=== PATIENT | female | born 1950 | race Caucasian/White ===

== ENCOUNTER 2020-09-07 12:42 | Emergency (ER) | payer MEDICARE, OTHER ==
[~2020-09-07] VITALS: Ht 170.2 cm; Wt 68.0 kg
[~2020-09-07 12:42] MED LIST: ACID REDUCER10 MG PO; ASPIR-LOW81 MG PO; LOSARTAN POTASS25 MG PO; METOPROLOL SUCC25 MG PO; WAL-ITIN10 MG PO
[2020-09-07] MEDS ORDERED: METOPROLOL TART50 MG PO (12:56)
[2020-09-07] MEDS ORDERED: MELOXICAM7.5 MG PO (12:57)
[2020-09-07] MEDS ORDERED: LOSARTAN POTAS100 MG PO (12:57)
[2020-09-07] MEDS ORDERED: CLONIDINE HCL0.1 MG PO (12:57)
[2020-09-07] MEDS ORDERED: HYDROCHLOROTH12.5 MG PO (12:57)
[2020-09-07] MEDS ORDERED: MONTELUKAST SOD10 MG PO (12:57)
[2020-09-07 13:13] LABS: BASOPHILS # (AUTO) 0.1 (0.0-0.1); BASOPHILS % 0.9 % (0.0-1.0); EOSINOPHILS % 0.5 % (0.0-6.0); HEMATOCRIT 38.2 % (34.2-44.1); HEMOGLOBIN 13.1 g/dL (12.0-16.0); LYMPHOCYTES # (AUTO) 1.4 (1.0-3.2); MEAN CORPUSCULAR HEMOGLOBIN 29.7 pg (28-32); MEAN CORPUSCULAR HGB CONC 34.3 g/dL (31-35); MEAN CORPUSCULAR VOLUME 86.6 fL (81-99); MONOCYTES # (AUTO) 0.4 (0.2-0.8); MONOCYTES % 7.3 % (4.4-11.3); NEUTROPHILS # (AUTO) 3.8 (2.1-6.9); NEUTROPHILS % 67.1 % (38.7-80.0); PLATELET COUNT 247 x10e3/uL (140-360); RED BLOOD COUNT 4.41 x10e6/uL (3.6-5.1); RED CELL DISTRIBUTION WIDTH 11.9 % (11.7-14.4)
[2020-09-07 13:14] LABS: BILIRUBIN,URINE NEGATIVE (NEGATIVE); CLARITY,URINE CLEAR (CLEAR); COLOR,URINE YELLOW (YELLOW); KETONES,URINE NEGATIVE (NEGATIVE); LEUKOCYTE ESTERASE ,URINE NEGATIVE (NEGATIVE); NITRITE,URINE NEGATIVE (NEGATIVE); PROTEIN,URINE DIPSTICK NEGATIVE (NEGATIVE); RBC,URINE 0-5 /HPF (0-5); URINE UROBILINOGEN 0.2 mg/dL (0.2 - 1); WBC,URINE (MAN) 0-5 /HPF (0-5)
[2020-09-07 13:15] LABS: EPITHELIAL CELLS,URINE RARE /LPF; MUCUS,URINE FEW (RARE)
[2020-09-07 13:30] LABS: ALANINE AMINOTRANSFERASE 20 IU/L (0-55); ALBUMIN 4.3 g/dL (3.5-5.0); ALBUMIN/GLOBULIN RATIO 1.6 (0.8-2.0); ALKALINE PHOSPHATASE 49 IU/L (40-150); ANION GAP 13.9 mmol/L (8-16); BLOOD UREA NITROGEN 14 mg/dL (7-26); BUN/CREATININE RATIO 19 (6-25); CALCIUM 9.1 mg/dL (8.4-10.2); CARBON DIOXIDE 24 mmol/L (22-29); CHLORIDE 100 mmol/L (98-107); CREATININE, SERUM 0.74 mg/dL (0.57-1.11); EST GLOMERULAR FILTRATION RATE > 60 ML/MIN (60-); GLUCOSE 104 mg/dL (74-118); POTASSIUM 3.9 mmol/L (3.5-5.1); SODIUM 134 mmol/L (136-145)
== END 2020-09-07 13:47 | disposition home or self-care (01) ==
LOC: ER 13:15
DX: I10 Essential (primary) hypertension (principal)
CPT/HCPCS: 36415; 80053; 81001; 85025; 99284

== ENCOUNTER → 2021-04-17 | Outpatient (CLI) | payer MEDICARE ==
[~2021-04-17] MED LIST changes: +CLONIDINE HCL0.1 MG PO; +HYDROCHLOROTH12.5 MG PO; +IOPAMIDOL 370 MG/ML 200 ML INFUS..BTL INJ ONE; +LOSARTAN POTAS100 MG PO; +MELOXICAM7.5 MG PO; +METOPROLOL TART50 MG PO; +MONTELUKAST SOD10 MG PO; +NITROGLYCERIN 0.4 MG SUBL ONE; +SODIUM CHLORIDE 0.9% 100 ML ONE
[2021-04-17 08:43] LABS: BLOOD UREA NITROGEN 15 mg/dL (7-26); BUN/CREATININE RATIO 20 (6-25); CREATININE, SERUM 0.75 mg/dL (0.57-1.11); EST GLOMERULAR FILTRATION RATE > 60 ML/MIN (60-)
== END ==
LOC: CT 07:57
PROVIDERS: ATTEND Internal Medicine
DX: R94.39 Abnormal result of other cardiovascular function study (principal)
CPT/HCPCS: 36415; 75574; 82565; 84520; J7050; Q9967

== ENCOUNTER → 2022-07-15 | Outpatient (CLI) | payer MEDICARE ==
[~2022-07-15] MED LIST changes: +IOPAMIDOL 370 MG/ML 100 ML INFUS..BTL INJ ONE; -IOPAMIDOL 370 MG/ML 200 ML INFUS..BTL INJ ONE; -NITROGLYCERIN 0.4 MG SUBL ONE
[2022-07-15 09:31] LABS: CREATININE, SERUM 0.82 mg/dL (0.57-1.11)
== END ==
LOC: CT 08:31
PROVIDERS: ATTEND Internal Medicine
DX: I77.819 Aortic ectasia, unspecified site (principal)
CPT/HCPCS: 36415; 71275; 82565; 84520; J7050; Q9967